=== PATIENT | female | born 1935 | race Caucasian/White ===

== ENCOUNTER 2017-12-27 23:01 | Emergency (ER) | payer SELFPAY ==
[~2017-12-27] VITALS: Ht 152.4 cm; Wt 70.4 kg
[2017-12-27] MEDS ORDERED: SODIUM CHLORIDE 0.9% 1,000 ML IV ONE (23:16)
[2017-12-28] MEDS ORDERED: ALTEPLASE 100MG/VIAL IV ONE
[2017-12-28] MEDS ORDERED: SODIUM CHLORIDE 0.9% IV STA ×2
[2017-12-28] MEDS ORDERED: ALTEPLASE IV STA ×2
[2017-12-28] MEDS ORDERED: ALTEPLASE 100MG/VIAL IV NR (00:10)
[2017-12-28] MEDS ORDERED: CONTAINER EMPTY IV NR (00:18)
[2017-12-28] MEDS ORDERED: ALTEPLASE IV NR (00:18)
[2017-12-28 00:21] LABS: BASOPHILS % 0.6 % (0.0-2.0); EOSINOPHILS % 2.5 % (0.0-5.0); HEMATOCRIT. 39.3 % (36.0-48.0); HEMOGLOBIN. 12.7 g/dL (12.0-16.0); LYMPHOCYTES % 21.2 % (20.0-50.0); MEAN CORPUSCULAR HEMOGLOBIN 27.7 pg (28.0-32.0); MEAN CORPUSCULAR VOLUME 85.4 fL (81.0-99.0); MEAN PLATELET VOLUME 11.2 fl (7.4-10.4); MONOCYTES % 9.4 % (2.0-8.0); NEUTROPHILS % 66.3 % (40.0-76.0); PLATELET 114 x1000/uL (130-400); RED CELL DISTRIBUTION WIDTH 16.1 % (11.6-14.6)
[2017-12-28 00:29] LABS: INR 1.1
[2017-12-28 00:32] LABS: CHLORIDE 105 mEq/L (98-107); ETHANOL BLOOD < 10 mg/dL
[2017-12-28 00:37] LABS: TROPONIN I < 0.02 ng/mL (0.00-0.04)
[2017-12-28] MEDS ORDERED: AZITHROMYCIN 500 MG in DEXT 5% WATER 250 ML IV NR (00:45)
[2017-12-28] MEDS ORDERED: CEFTRIAXONE 1 G PREMIX 50 ML IV NR (00:45)
[2017-12-28] MEDS ORDERED: SODIUM CHLORIDE 0.9% 1,000 ML IV ONE (00:45)
[2017-12-28 01:57] LABS: CLARITY URINE CLEAR (CLEAR); COLOR URINE YELLOW (YELLOW); KETONES URINE NEGATIVE (NEGATIVE); LEUKOCYTE ESTERASE URINE NEGATIVE (NEGATIVE); NITRITE URINE NEGATIVE (NEGATIVE); OCCULT BLOOD URINE NEGATIVE (NEGATIVE); PROTEIN URINE NEGATIVE (NEGATIVE); SPECIFIC GRAVITY URINE 1.009 (1.005-1.030); UROBILINOGEN URINE 0.2 E.U./dL (0.2-1.0)
[2017-12-28 02:11] LABS: *AMPHETAMINES SCREEN URINE NEGATIVE (NEGATIVE); *BARBITURATES SCREEN URINE NEGATIVE (NEGATIVE); *BENZODIAZEPINES SCREEN URINE NEGATIVE (NEGATIVE); *COCAINE SCREEN URINE NEGATIVE (NEGATIVE); CANNABINOID URINE SCREEN NEGATIVE (NEGATIVE); METHADONE URINE SCREEN NEGATIVE (NEGATIVE); OPIATES URINE SCREEN NEGATIVE (NEGATIVE); PHENCYCLIDINE URINE SCREEN NEGATIVE (NEGATIVE)
[2017-12-28 02:45] VITALS: BP 149/86
== END 2017-12-28 04:05 | disposition short-term general hospital (02) ==
LOC: ER 23:01 → CANBEDREQ 12-28 11:04
DX: I63.9 Cerebral infarction, unspecified (principal); J18.9 Pneumonia, unspecified organism; I48.91 Unspecified atrial fibrillation; M19.90 Unspecified osteoarthritis, unspecified site; Z79.82 Long term (current) use of aspirin
CPT/HCPCS: 36415; 70450; 71045; 80053; 80305; 81003; 82962; 83605; 84443; 84484; 85025; 85610; 87040; 93005; 96374; 96375; 99291; G0482; J0456; J0696; J2997; J7030; J7050; J7060